=== PATIENT | female | born 1965 | race Caucasian/White ===

== ENCOUNTER → 2017-10-24 | Outpatient (CLI) | payer OTHER ==
[~2017-10-24] MED LIST: ALBU8.5H IH; ALBU8.5H12 IH; ARIP20TA11 PO; AZIT-18 PO; CIT20 PO; CITA-139 PO; IBU600 PO; KET10 PO; LOR5/325 PO; PANT40TA65 PO; PER PO; PRED20TA6 PO; PROM-110 PO
[2017-10-24 16:24] LABS: PLATELET COUNT, AUTOMATED 195 K/uL (150-450)
== END ==
LOC: LAB 15:56
PROVIDERS: ATTEND Emergency Medicine
DX: R11.2 Nausea with vomiting, unspecified (principal)
CPT/HCPCS: 36415; 81001; 82040; 82247; 82310; 82374; 82435; 82565; 82947; 84075; 84132; 84155; 84295; 84450; 84460; 84520; 85025

== ENCOUNTER → 2017-11-05 | Outpatient (CLI) | payer OTHER | LOC: RESP 06:54 | PROVIDERS: ATTEND Emergency Medicine | DX: R06.2 Wheezing (principal) | CPT/HCPCS: 94060; 94726; 94729 ==

== ENCOUNTER → 2017-11-22 | Outpatient (CLI) | payer OTHER ==
--- NOTE | 2017-11-23 09:53 | RADIOLOGY IMAGING REPORT ---
FACILITY: [facility] PATIENT NAME: RERE ARANA : [id number] MR: [id number] V: [id number] EXAM DATE: ORDERING PHYSICIAN: SUZAN COLE TECHNOLOGIST: America Cherry PROCEDURE:BILATERAL DIGITAL SCREENING MAMMOGRAM WITH CAD ASSISTED INTERPRETATION AND 3D BREAST TOMOSYNTHESIS. COMPARISON:None. This is patient's baseline mammogram. INDICATIONS:SCREENING. FINDINGS: A small amount of fibroglandular tissue is seen throughout the breasts. There is a focal area of increased density in the lateral portion of the right breast zone 2 on the right CC view for which spot compression view is recommended. There are two areas in the upper portion of the left breast zone 2 on the left MLO view for which spot compression view is recommended. DIAGNOSTIC CATEGORY 0--INCOMPLETE: NEED ADDITIONAL IMAGING EVALUATION. RECOMMENDATIONS: ADDITIONAL MAMMOGRAPHIC VIEWS REQUIRED: BILATERAL BREASTS. IMPRESSION: BI-RADS 0: Additional views of both breasts recommended as described. Images were reviewed with R2CAD and 3D breast tomosynthesis. Dictated by: Chrissy Pace M.D. on 11/22/2017 at 8:29 Transcribed by: TYSHAWN on 11/22/2017 at 19:42 Approved by: Chrissy Pace M.D. on 11/23/2017 at 9:52 [facility]
== END ==
LOC: MAMO 02:26
PROVIDERS: ATTEND Emergency Medicine
DX: Z12.31 Encounter for screening mammogram for malignant neoplasm of breast (principal); R92.8 Other abnormal and inconclusive findings on diagnostic imaging of breast
CPT/HCPCS: 77063; 77067

== ENCOUNTER → 2017-11-30 | Outpatient (CLI) | payer OTHER ==
[~2017-11-30] MED LIST changes: +VARE1TAB3 PO
--- NOTE | 2017-11-30 15:35 | RADIOLOGY IMAGING REPORT ---
FACILITY: [facility] [place] PATIENT NAME: RERE ARANA : [id number] MR: [id number] V: [id number] EXAM DATE: [id number] ORDERING PHYSICIAN: SUZAN COLE TECHNOLOGIST: Karma Mahoney PROCEDURE:BILATERAL DIAGNOSTIC DIGITAL MAMMOGRAM & LIMITED ULTRASOUND COMPARISON:11/22/17 INDICATIONS:abnormal mammogram/bilateral asymmetries on baseline screening mammogram FINDINGS: MAMMOGRAM: Spot compression images with tomosynthesis were obtained of lateral right breast asymmetry & superior left breast asymmetry as well as additional ML views of each breast. The density on the right spreads out better but there is still a small island of glandular tissue density although it is not particularly concerning in the tomosynthesis images & there is no discrete correlate in the ML view today or the MLO image with tomosynthesis on the prior. On the left, the asymmetry spreads out better with the parenchymal glandular tissue. ULTRASOUND: Limited evaluation of the right breast was then done from 7 o'clock to 10 o'clock. Ultrasound shows normal appearing fatty & fibroglandular tissue. No discrete solid or cystic abnormality. DIAGNOSTIC CATEGORY 1--NEGATIVE. RECOMMENDATIONS:Resume screening mammography in 1 year. ROUTINE MAMMOGRAM AND CLINICAL EVALUATION IN 1 YR. IMPRESSION: BIRADS 1: Negative. Dictated by: Yared Christianson on 11/30/2017 at 13:50 Transcribed by: AGNES on 11/30/2017 at 15:11 Approved by: Yared Christianson on 11/30/2017 at 15:33 [facility]
== END ==
LOC: MAMO 00:26
PROVIDERS: ATTEND Emergency Medicine
DX: R92.8 Other abnormal and inconclusive findings on diagnostic imaging of breast (principal)
CPT/HCPCS: 77062; 77066

== ENCOUNTER → 2017-12-03 | Outpatient (CLI) | payer OTHER ==
[~2017-12-03] MED LIST changes: -VARE1TAB3 PO
--- NOTE | 2017-12-03 16:39 | RADIOLOGY IMAGING REPORT ---
FACILITY: [facility] PATIENT NAME: Lara Posey : 1965 MR: [id number] V: [id number] EXAM DATE: ORDERING PHYSICIAN: SUZAN COLE TECHNOLOGIST: Location: [facility] Patient: Lara Posey : 1965 Visit/Account:[id number] Date of Sevice: 12/03/2017 Exam type: CHEST PA AND LAT History: Nocturnal hypoxia Comparison: Chest x-ray 01/10/2015. Findings: Both lungs are well-expanded and clear. There is no focal consolidation, pleural effusion or pneumot horax. Heart is enlarged and pulmonary vascular markings are prominent but there is no evidence for failure. The osseous structures are unremarkable. IMPRESSION: 1. No acute cardiopulmonary disease. 2. Cardiomegaly and pulmonary vascular prominence on a proportion for patient's age. Query underlyi ng cardiomyopathy. Report Dictated By: Puneet Banda MD at 12/03/2017 4:32 PM Report E-Signed By: Puneet Banda MD at 12/03/2017 4:35 PM WSN:[email or web address]
== END ==
LOC: RAD 15:58
PROVIDERS: ATTEND Emergency Medicine
DX: I51.7 Cardiomegaly (principal)
CPT/HCPCS: 71046

== ENCOUNTER → 2017-12-14 | Outpatient (CLI) | payer OTHER ==
[~2017-12-14] MED LIST changes: +VARE1TAB3 PO
--- NOTE | 2017-12-17 09:02 | RADIOLOGY IMAGING REPORT ---
FACILITY: [facility] PATIENT NAME: RERE ARANA : [id number] MR: [id number] V: [id number] EXAM DATE: ORDERING PHYSICIAN: SUZAN COLE TECHNOLOGIST: Heidi Acharya EXAMINATION:TWO-DIMENSIONAL ECHOCARDIOGRAPH REASON:ENLARGED HEARAT ON XRAY 2D Measurements (normal values in centimeters) LV endLV endRV endVent.LV PostAorticLeftPercent DiastolicSystolicDiastolicSeptumWallRootAtriumShortening (3.5-5.7)(0.9-2.6)(0.6-1.1)(0.6-1.1)(2.0-3.7)(1.9-4.0)(25-35%) [id number]% STROKE VOLUME: 31ml ESTIMATED EJECTION FRACTION:63% PARASTERNAL LONG AXIS: Overall left ventricular systolic function appears to be normal & chamber sizes also appear to be normal. Color examination of the valves reveals a trace of mitral insufficiency. Color examination of the aortic valve was unremarkable. The aortic valve appears to open normally. Mitral valve also appears to open normally. PARASTERNAL SHORT AXIS: Overall left ventricular systolic function is normal. Chamber sizes are normal. Aortic valve is trileaflet in configuration although it's not well seen. Color examination of the aortic valve was unremarkable. Color examination of the pulmonic valve was unremarkable. APICAL FOUR AND TWO CHAMBER: Normal left ventricular ejection fraction & normal chamber sizes. Aortic valve area is measured within normal ranges at 2.4cm2. Mitral valve area measured within normal ranges at 2.86cm2. Left atrial & right atrial volumes are measured within normal ranges at 17.5 & 22.0ml/m2. The tricuspid regurgitation Vmax measured 2.13m/sec. There is a trace amount of tricuspid insufficiency present. SUBCOSTAL VIEW: No pericardial effusion was noted. There is a semiprominent pericardial fat pad present. No atrioseptal or ventriculoseptal defects were appreciated. Doppler examination of the mitral valve in diastole does reveal a normal pattern but there is reversal with Valsalva suggesting decreased diastolic function. OVERALL IMPRESSION: 1. Normal left ventricular ejection fraction of 63% with a mild to moderate decrease in diastolic function. 2. There are normal chamber sizes. 3. A trileaflet aortic valve with no abnormalities. 4. A trace of mitral & tricuspid insufficiency with normal right ventricular systolic pressures of 21mm Hg. 5. A somewhat prominent pericardial fat pad. No pericardial effusion was noted. 6. No atrioseptal or ventriculoseptal defects were appreciated. Dictated by: Roseline Renteria M.D. on 12/14/2017 at 15:20 Transcribed by: AGNES on 12/17/2017 at 8:47 Approved by: Roseline Renteria M.D. on 12/17/2017 at 9:01 [facility]
== END ==
LOC: US 04:34
PROVIDERS: ATTEND Emergency Medicine
DX: I50.30 Unspecified diastolic (congestive) heart failure (principal); I34.0 Nonrheumatic mitral (valve) insufficiency; I07.1 Rheumatic tricuspid insufficiency; E65 Localized adiposity
CPT/HCPCS: 93306

== ENCOUNTER → 2018-03-11 | Outpatient (CLI) | payer OTHER ==
[~2018-03-11] MED LIST changes: -CITA-139 PO; +CITA-145 PO; +LOPE2CAP15
[2018-03-11 09:18] LABS: PLATELET COUNT, AUTOMATED 223 K/uL (150-450)
== END ==
LOC: LAB 08:47
PROVIDERS: ATTEND Nurse Practitioner Primary Care
DX: R19.7 Diarrhea, unspecified (principal)
CPT/HCPCS: 36415; 82040; 82247; 82310; 82374; 82435; 82565; 82947; 84075; 84132; 84155; 84295; 84450; 84460; 84520; 85025

== ENCOUNTER → 2018-06-27 | Outpatient (CLI) | payer OTHER | LOC: LAB 16:20 | PROVIDERS: ATTEND Emergency Medicine | DX: R30.0 Dysuria (principal) | CPT/HCPCS: 81001 ==

== ENCOUNTER → 2018-07-23 | Outpatient (CLI) | payer OTHER | LOC: LAB 14:41 | PROVIDERS: ATTEND Surgery | DX: C44.310 Basal cell carcinoma of skin of unspecified parts of face (principal) | CPT/HCPCS: 88305 ==

== ENCOUNTER → 2018-08-06 | Outpatient (CLI) | payer OTHER ==
[~2018-08-06] MED LIST changes: +AZIT-17 PO; +IPRA3AMP10 IH
--- NOTE | 2018-08-06 09:21 | RADIOLOGY IMAGING REPORT ---
[facility] PATIENT NAME: Lara Posey : 1965 MR: [id number] V: [id number] EXAM DATE: [id number] ORDERING PHYSICIAN: GILSON HANNA TECHNOLOGIST: Location: [facility] [place] Patient: Lara Posey : 1965 Visit/Account:[id number] Date of Sevice: 08/06/2018 Exam type: CHEST PA AND LAT History: cough Comparison: 12/03/2017. Findings: Both lungs are hyperexpanded. Chronic interstitial and pulmonary vascular markings are noted but the re is no focal infiltrate, pleural effusion or pneumothorax. Heart size is slightly prominent. The osseous structures are unremarkable. IMPRESSION: 1. No acute cardiopulmonary disease. 2. Mild cardiomegaly and pulmonary vascular prominence, unchanged. Report Dictated By: Puneet Banda MD at 08/06/2018 9:16 AM Report E-Signed By: Puneet Banda MD at 08/06/2018 9:17 AM WSN:[email or web address]
== END ==
LOC: RAD 08:33
PROVIDERS: ATTEND Internal Medicine
DX: I51.7 Cardiomegaly (principal)
CPT/HCPCS: 71046